=== PATIENT | male | born 1935 | race Caucasian/White ===

== ENCOUNTER 2024-07-24 11:29 | Emergency (ER) | payer OTHER, SELFPAY ==
[2024-07-24 11:50] VITALS: BP 127/77
[2024-07-24 14:08] VITALS: BMI 21.4
--- NOTE | 2024-07-24 14:59 | ED.GENMED ---
History of Present Illness
General
Chief Complaint: Musculo-Skeletal Complaint
Time Seen by Provider: 07/24/24 14:05
History of Present Illness
History of Present Illness:
89-year-old male with history of high blood pressure presenting for left-sided back pain. Patient yesterday he was trying to lift a pig trough, which they use a planter. He was lifting on his knees. After this, started to have pain in his left
lower back, going down his leg. He has tried heating pad without significant relief of pain. Denies numbness or tingling. Denies weakness. Denies issues or injuries to his back in the past. Denies chest pain, difficulty breathing, fever or
additional acute medical complaints.
Past History
Past History
ED Past Medical History: None
ED Past Surgical History: Other
Social History
Tobacco: Non-smoker
Alcohol: None
Drug: None
Personal:
Living: with family
Employment: Employed
Phy Exam
Physical Exam
Physical Exam:
General: Well-appearing, no clinical signs of dehydration, nontoxic and in no acute distress
HEENT: protecting airway
Neck: appears supple
CV: Normal heart rate, regular rhythm
Resp: No accessory muscle use, no increased work of breathing
Abd: No distention
Extremities: No deformities, no swelling, no erythema. Mild tenderness to the left lower lumbar back. No midline tenderness. No overlying skin changes. Pain reproduced with raising of the left lower extremity. Distal sensation and pulses
intact. No weakness.
Neuro: alert, no focal neurologic deficit
: deferred
Rectal: deferred
Psych: Normal affect
Skin: Intact
Course
Orders/Labs/Results
Orders:
Orders
07/24/24 14:43
Ketorolac [Toradol] 30 mg IM NOW STA
07/24/24 14:44
Lidocaine [Lidocaine 4% Patch] 1 patch TOPICAL DAILY ONE
Apply Lidocaine patch(s) to:: L-back
Vital Signs
Initial and Last Documented VS:
Initial Vital Signs
Temp Pulse Resp BP Pulse Ox
98.1 F 79 20 127/77 98
07/24/24 11:50 07/24/24 11:50 07/24/24 11:50 07/24/24 11:50 07/24/24 11:50
Last Documented Vital Signs
Temp Pulse Resp BP Pulse Ox
98.1 F 79 20 127/77 98
07/24/24 11:50 07/24/24 11:50 07/24/24 11:50 07/24/24 11:50 07/24/24 11:50
MDM/Problems Addressed
MDM/Problems Addressed:
89-year-old male presenting for left-sided back pain after lifting a heavy planter yesterday. Vital signs are normal.
On exam, patient resting comfortably, no acute distress. Symptoms appear most consistent with sciatica versus muscle spasm versus lumbar radiculopathy. Do not suspect any concerning etiology to patient's presenting symptoms. Do not suspect any
spinal fracture in the absence of any direct trauma, and no midline spinal tenderness. No fever, systemic symptoms, or midline tenderness, without concern for spinal abscess or infection. No red flag such as bowel or bladder incontinence, focal
weakness, or any sensory deficits on exam, without present concern for spinal compression. Will treat with Toradol and lidocaine patch. Otherwise feel stable for discharge. Will start patient on a steroid pack, no history of diabetes. Advise
close outpatient follow-up, advised outpatient MRI if symptoms are persisting. Return precautions discussed and patient verbalized understanding
*Critical Care Note
Total Time (30-74mins, 75-104mins- exclusive of procedures): Not Applicable
ED Attending Note
-
Portions of this chart may have been created with voice recognition software.� Occasional wrong word or��sound alike� substitutions may have occurred due to the inherent limitations of voice recognition software.
Discharge Plan
Departure
Prescriptions:
No Action
aspirin 81 MG tablet,delayed release (DR/EC)
81 mg PO DAILY
[id number] [Centrum Silver Ultra Men's] 1 EACH tablet
1 ea PO DAILY
wheat dextrin (with aspartame) [Benefiber s/f (wheat dextrin)] 1 EACH powder in packet
1 ea PO DAILY
Referrals:
Von Mercedes DO [Family Provider] -
Interventions
Interventions:
*Risk Screen - Suicide Last Done: 07/24/24 14:08
*General Assessment Last Done: 07/24/24 11:50
*Neglect/Abuse Screening Last Done: 07/24/24 14:08
ED- Fall Risk Assessment Last Done: 07/24/24 14:08
*ED COVID-19 Vaccine History Last Done: 07/24/24 14:08
ED-Musculoskeletal Assessment Last Done: 07/24/24 14:08
Discharge Date and Time
Print Language: [id number]
[2024-07-24] MEDS: TORADOL 30 MG IM (15:18)
[2024-07-24] MEDS: LIDOCAINE 4% PATCH 1 PATCH TOPICAL (15:18)
== END 2024-07-24 15:33 | disposition home or self-care (01) ==
LOC: EMR 11:29
PROVIDERS: EMERGENCY PHYSICIAN Student in an Organized Health Care Education/Training Program; FAMILY PHYSICIAN Internal Medicine
DX: M54.50 Low back pain, unspecified (principal)
CPT/HCPCS: 96372; 99284

== ENCOUNTER → 2024-08-03 15:19 | Outpatient (REF) | payer OTHER, SELFPAY | LOC: RAD 15:19 | PROVIDERS: ATTENDING PHYSICIAN Internal Medicine | DX: M79.605 Pain in left leg (principal) | CPT/HCPCS: 73564; 93971 ==